=== PATIENT | female | born 1960 | race Hispanic/Latino ===

== ENCOUNTER 2016-06-17 20:12 | Emergency (ER) | payer OTHER ==
[2016-06-17 20:24] VITALS: BP 157/95
== END 2016-06-17 22:31 | disposition left against medical advice (07) ==
LOC: ED 20:12
DX: R10.9 Unspecified abdominal pain (principal); R11.0 Nausea; K21.9 Gastro-esophageal reflux disease without esophagitis; Z72.0 Tobacco use; Z53.21 Procedure and treatment not carried out due to patient leaving prior to being seen by health care provider

== ENCOUNTER 2017-03-25 17:00 | Emergency (ER) | payer OTHER ==
[2017-03-25 17:36] VITALS: BP 150/87
--- NOTE | 2017-03-25 18:31 | Emergency Department Report ---
Chief Complaint: Abdominal Pain Stated Complaint: ABD PAIN Time Seen by Provider: 03/25/17 18:22 - HPI History of Present Illness: Patient here complaining of left sided abdominal pain that comes and goes since last night. She finished that Maalox and provided some relief. She reports nausea and Saturday and pain with urinating and. Patient denies any blood in her urine. Denies any blood in her stool. She is also complaining of left- sided back pain and pain is worse with movement. Pain is 10 out of 10 and achy. Denies any fever or chills. - ROS Review of Systems: All systems are negative unless stated in HPI above - Exam Vital Signs: Vital Signs 03/25/17 17:31 Temperature 98.4 F Pulse Rate 95 H Respiratory 18 Rate Blood Pressure 150/87 O2 Sat by Pulse 95 Oximetry Physical Exam: Gen.: This is a 57-year-old female well-nourished well-developed in no acute distress. Abdomen: Distended, positive guarding to left lower quadrant. Positive pain generalized abdomen. Positive CVA tenderness. Normal bowel sounds. MSE screening note: Focused history and physical exam performed. Due to findings the following was ordered: ED Medical Decision Making - Medical Decision Making MDM: Patient screened by provider in triage area. Appropriate protocol initiated and patient to be seen in main ED by ED Disposition for MSE Condition: Stable Instructions: Abdominal Pain (ED)
[2017-03-25 18:32] LABS: Bilirubin,Urine NEG (Negative); Blood,Urine SM (Negative); Ketones,Urine NEG (Negative); Leukocyte Esterase,Urine NEG (Negative); Mucus,Urine FEW /HPF; Nitrite,Urine NEG (Negative); Protein,Urine <15 mg/dL mg/dL (Negative); Urobilinogen,Urine < 2.0 mg/dL (<2.0)
[2017-03-25 18:40] LABS: Basophils % (Auto) 0.4 % (0.0-1.8); Eosinophils % (Auto) 1.5 % (0.0-4.3); Hematocrit 41.7 % (30.3-42.9); Mean Corpuscular HGB Conc 34 % (30-34); Mean Corpuscular Hemoglobin 32 pg (28-32); Mean Corpuscular Volume 94 fl (79-97); Platelet Count 241 K/mm3 (140-440); Red Blood Count 4.42 M/mm3 (3.65-5.03); White Blood Count 11.1 K/mm3 (4.5-11.0)
[2017-03-25 18:49] LABS: Alanine Aminotransferase 34 units/L (7-56); Albumin 4.2 g/dL (3.9-5); Albumin/Globulin Ratio 1.7 %; Alkaline Phosphatase 78 units/L (35-129); Anion Gap 17 mmol/L; BUN/Creatinine Ratio 18; Blood Urea Nitrogen 9 mg/dL (7-17); Carbon Dioxide 28 mmol/L (22-30); Chloride 99.8 mmol/L (98-107); Glucose 146 mg/dL (65-100); Lipase 32 units/L (13-60); Potassium 4.8 mmol/L (3.6-5.0); Sodium 140 mmol/L (137-145); Total Protein 6.7 g/dL (6.3-8.2)
== END 2017-03-26 03:54 | disposition left against medical advice (07) ==
LOC: ED 17:00
DX: R10.9 Unspecified abdominal pain (principal); Z53.21 Procedure and treatment not carried out due to patient leaving prior to being seen by health care provider
CPT/HCPCS: 36415; 80053; 81001; 83690; 85025